=== PATIENT | male | born 1935 | race Caucasian/White ===

== ENCOUNTER → 2020-05-30 13:07 | Outpatient (CLI) | payer MEDICARE, SELFPAY ==
--- NOTE | 2020-05-30 13:45 | MRI_ITS ---
STUDY: MRI LUMBAR SPINE WITHOUT CONTRAST REASON FOR EXAM: Male, 85 years old. MRI lumbar spine without contrast. INDICATION: 85 years old Male presenting with back pain INTO R LEG, H/O PRIOR SX 03/15. TECHNIQUE: Sagittal T2, sagittal T1, sagittal STIR, axial T1, and axial T2 without contrast. COMPARISON: None. FINDINGS: There is grade 1 degenerative anterolisthesis of L3 on L4, less than 3 mm. There is grade 1 degenerative anterolisthesis of L4 on L5, less than 2 mm. There is pedicular screw fusion of L4 and L5. Conus medullaris terminates at L1-L2. Cauda equina is restricted at L3-L4. T12-L1: Normal endplates. Normal disc height, hydration and morphology. Normal bilateral facet joints. Normal central canal and bilateral lateral recesses. Normal bilateral intervertebral neural foramina. L1-2: Normal endplates. Normal disc height, hydration and morphology. Normal bilateral facet joints. Normal central canal and bilateral lateral recesses. Normal bilateral intervertebral neural foramina. L2-3: Thecal sac is dorsally decompressed with laminotomy. Normal endplates. The disc has collapsed. Mildly degenerated bilateral facet joints. Normal central canal and bilateral lateral recesses. Normal bilateral intervertebral neural foramina. L3-4: Mildly degenerated endplates. Disc is degenerated with broad bulge and superimposed central protrusion. There is severe bilateral facet degeneration and hypertrophy. Thecal sac is severely stenotic. Foramina are severely stenotic. Lateral recesses are stenotic. L4-5: Thecal sac is dorsally decompressed with laminotomy. Normal endplates. Normal disc height, hydration and morphology. Minimally degenerated bilateral facet joints. There is moderate bilateral foraminal stenosis and lateral recesses are patent. L5-S1: Normal endplates. Normal disc height, hydration and morphology. Normal bilateral facet joints. Normal central canal and bilateral lateral recesses. There is moderate bilateral lateral recess stenosis. Normal visualized sacral ala. There is presumed left iliac bone island with extremely low T1 signal elongated lesion. Aorta is of normal caliber. Normal visualized paraspinous soft tissue structures. MRI/Spine Lumbar (Routine) IMPRESSION: 1. Severe spondylotic L3-L4 thecal sac stenosis. Neurosurgical consultation is advised. 2. Expected appearance of decompressed patent thecal sac at L2-L3 and L4-L5. 3. L4-L5 grade 1 anterolisthesis with pedicular screw fusion. Electronically Signed: Leonard Anton, at 22:08 EST Tel , Service support ,
== END ==
PROVIDERS: PCP Family Medicine; Referring Provider Anesthesiology Pain Medicine; Visit Provider Anesthesiology Pain Medicine
DX: M54.9 Dorsalgia, unspecified (principal); M79.606 Pain in leg, unspecified
CPT/HCPCS: 72148

== ENCOUNTER 2020-08-01 12:07 | Outpatient (RCR) | payer MEDICARE, SELFPAY ==
--- NOTE | 2020-08-05 12:43 | HP.PTEVAL_ITS ---
Patient's Visit Information MINDA RUIZ is a 85 year old M referred to Physical Therapy by Dr. Caitlyn Waite MD with a diagnosis of Low back and leg pain. Date of Evaluation: 08/01/20 Physical Therapist: Hay Hendrickson DPT - Visit Plan Frequency: 2x /Week Duration: 4 Weeks Plan: Start with flexion for short term relief. Progress core and BLE sternghtening for HEP and to stabilize around his lumbar spine due to reduce stress to this region. - Subjective Pt. is here today for his initial evaluation with diagnosis of back and R leg pain. Pt. reports having pain for many years. He did have a lumbar fusion at L4/L5. Pt. reports having a recent injection which was helpful. He has had decreased R leg pain since. Pt. did have an MRI which showed Severe spondylotic L3-L4 thecal sac stenosis and the radiologist reported a neurosurgical consultation is advised. He is feeling better since his injection. He reports no N/T and no myotomal weakness currently. His biggest complaint is pain and weakness in BLE after walking for 5-10mins. 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 No bladder dysfunction noted, no saddle region pain. Pt. is hopeful to reduce symptoms in order to get back to recreatonal walking and riding his bicyle without limitations. - Pain Lumbar spine Pain Intensity (Out of 10): 2 BLEs Pain Intensity (Out of 10): 0 Pain Intensity Range: 0, 6 Comment: increases with walking - Objective POSTURE: Pt. has slight flexed posture in stance. Pt. is able to correct with VCing, but has increase in symptoms with trunk extension (tingling noted). Normal wt. shifting. PALPATION: pt. has slight tenderness along lumbar erector spinea. No pain with palpation of BLEs. NEURO: Pt. had nromal sensation in BLEs. Pt. has normal patellar DTR, absent achilles DTR BLE. ROM: lumbar spine- flexion- min loss, extension mod/max loss increase NW, SB mod loss raymond NE, rotation min/mod loss bilat BE. Pt .has tight HS and hip flexors Bilat. MMT: BLEs 4+/5 throughout, except hip abd 4/5 bilat, hip flexors 4/5, knee ext 4/5, knee flexion 4/5. GAIT: Pt. ambulates without AD. He has slight flexed posture. Normal step length, normal tempo. He did start to report increased BLE weakness after walking for 5+ minutes. Resolved after sitting and flexion exercises - Goals Goal 1:: LTG: Pt. to be I with HEP. Goal Time Frame: 4-6 Weeks Goal 2:: LTG: Pt. to have decreased pain to 0-2/10 with walking to and from barn (~10 min). Goal Time Frame: 4-6 Weeks Goal 3:: LTG: Pt. to have increased BLE and core strength increased by 1/2 grade of all effected muscles. Goal Time Frame: 4-6 Weeks Goal 4:: STG: Pt. to demonstrate improved posture throughout therapy session indicating increased postural awareness. Goal Time Frame: 2-4 Weeks Goal 5:: LTG: Pt. to have increased HS and hip flexor length increased by 25% bilaterally allowing for improved pelvic positoning. Goal Time Frame: 4-6 Weeks - Rehabilitation Potential Physical Therapy Diagnosis: Pt. has signs and symptoms consistent with low back and BLE pain. Pt. has marked BLE and core weakness. He would benefit from PT to address above limitations increasing stability of his core in order to reduce stress applied to lumbar allowing for increased tolerance to walking and functional activities. Rehabilitation Potential: Fair - Anticipated Interventions Patient/Client Instruction: Educate patient on: Condition, Plan of Care, Risk Factors, Benefits of Fitness Program For the Purpose of:: To improve decision making, To facilitate caregiver knowledge, To improve self management, To prevent re-injury, To improve ability to perform tasks related to life management, To improve tolerance to ADL's Therapeutic Exercise to Include: Strength training, Power training, Endurance training, Balance training, Flexibilty training, Gait and locomotor training, Passive ROM, Active ROM, Dynamic Lumbar Stabilization, Brannon Exercises For the Purpose of:: To decrease pain, To decrease swelling/inflammation, To increase ROM, To improve nutrient delivery to tissue, To increase oxygenation perfusion, To improve muscle performance and motor function, To improve ability to perform ADL's, To improve gait and locomotor functions, To improve health of tissue, To decrease soft tissue restriction, To increase flexibility/ROM Thank you for the opportunity to evaluate your patient. For Medicare and Medicare HMO plans, please review the plan of care and approve it. It will need to be FAXED BACK to us at [phone] for Medicare purposes. For Medicare only, by signing this I certify the plan of care. Please let me know if there are questions or concerns regarding this plan of care. Physician Signature: Date:
== END 2020-08-01 19:00 | disposition home or self-care (01) ==
LOC: PT 12:07
PROVIDERS: PCP Family Medicine; Referring Provider Anesthesiology Pain Medicine; Visit Provider Anesthesiology Pain Medicine
DX: M54.9 Dorsalgia, unspecified (principal); M25.559 Pain in unspecified hip; M25.569 Pain in unspecified knee
CPT/HCPCS: 97110; 97161

== ENCOUNTER → 2024-04-30 | Outpatient (CLI) | payer MEDICARE, SELFPAY ==
--- NOTE | 2024-04-30 12:27 | MRI_ITS ---
STUDY: MRI BRAIN WITH AND WITHOUT CONTRAST (ATTENTION INTERNAL AUDITORY CANALS - I.A.C.''s) REASON FOR EXAM: Male, 88 years old. RT hearing loss, difficulty hearing, ASYMMETRIC HEARING LOSS TECHNIQUE: Standardized multiplanar fat and water weighted pulse sequences were obtained. ml of 19cc clariscan contrast material was administered intravenously for the contrast portion of the examination. COMPARISON: None. FINDINGS: Internal auditory canal findings: Normal bilateral temporal bones. Normal bilateral internal auditory canals. There is no demonstrated intracanalicular or cisternal vestibular schwannoma (acoustic neuroma). There is no enhancement of the bilateral VIIth or VIIIth cranial nerves. Normal bilateral cochlea, vestibules and semicircular canals. No mastoid air cell opacification is present. No cerebellar pontine angle mass or cyst is seen. There is no demonstrated lesions of the cavernous sinus. No nodularity or abnormal enhancement is seen in the 7th or 8th cranial nerves within IACs. No demonstrated Mondini''s malformation. BRAIN FINDINGS: There is mild cerebral atrophy with widening of the extra-axial spaces and ventricular dilatation. There are a limited number of small white matter hyperintensities, distributed throughout the deep white matter tracts of the cerebral hemispheres, consistent with mild chronic white matter ischemic changes. There is no evidence for recent intracranial ischemia or other cause of cytotoxic edema on diffusion weighted imaging (DWI). There are no demyelinating plagues of the supratentorial brain, brainstem or cerebellum. There are no findings suspicious for multiple sclerosis (MS). Normal bilateral frontal poles, and orbital frontal and gyrus recti of the frontal lobes. Normal bilateral temporal tips of the temporal lobes. There are no white matter shear injuries (diffuse axonal injuries). There are no parenchymal hemorrhages or hematomas. There are no findings to suggest prior closed head parenchymal injury of the brain. No hydrocephalus or midline shift is present. There are no visualized ring-enhancing lesions of the brain parenchyma or abnormal thickening or enhancement of the meninges or dura. Normal bilateral basal ganglia. Normal thalami. Normal flow voids within the major intracranial circulation suggesting patency by spin echo criteria. Normal venous enhancement. There is no enhancing intra-axial or extra-axial abnormality. There is no extra-axial fluid accumulation. Normal sella turcica, pituitary gland, infundibular stalk, optic chiasm and hypothalamus. Normal tectal plate and pineal gland. Normal midbrain, francine and medulla. 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 Susceptibility artifact is also present in this same region. Normal left cerebellar lobe. Normal basal cisterns. No demonstrated orbital abnormality, within the constraints of a routine brain study. Normal visualized paranasal sinuses. Normal calvarium and skull base. Normal visualized soft tissue structures. Normal visualized upper cervical spine. MRI/Brain W/WO Contrast IMPRESSION: 1. Normal unenhanced and enhanced MRI of the bilateral internal auditory canals (I.A.C''s). 2. No acute infarct or intracranial hemorrhage 3. 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 Susceptibility artifact is also present in this same region. Normal left cerebellar lobe. Electronically Signed: Owen Samayoa MD at 11:16 EST ,
[2024-04-30 13:04] LABS: CREATININE FINGERSTICK < 1.0 mg/dL (0.70-1.30); EGFR FINGERSTICK > 60.0000 mL/min (>60)
== END | disposition home or self-care (01) ==
PROVIDERS: PCP Family Medicine; Referring Provider Otolaryngology; Visit Provider Otolaryngology
DX: H90.3 Sensorineural hearing loss, bilateral (principal)
CPT/HCPCS: 70553; A9575